=== PATIENT | female | born 1990 | race Caucasian/White ===

== ENCOUNTER 2016-08-28 05:39 | Emergency (ER) | payer MEDICAID ==
--- NOTE | 2016-08-28 08:15 | ER Document Report ---
ED ENT - General Chief Complaint: Sore Throat Stated Complaint: SORE THROAT Notes: The patient is a 26-year-old female who presents with 2 days of sore throat and fevers. She says that she is able swallow, but is painful. She denies neck stiffness, nausea, vomiting, trismus or tongue swelling. TRAVEL OUTSIDE OF THE [place] IN LAST 30 DAYS: No - Related Data Allergies/Adverse Reactions: No Known Allergies Allergy (Verified 08/28/16 05:50) Home Medications: Current Home Medications Norgestimate-Ethinyl Estradiol [Sprintec 28 Day Tablet] 1 tab PO DAILY 08/28/16 [History] Past Medical History - General Information source: Patient - Social History Smoking Status: Never Smoker Chew tobacco use (# tins/day): No Frequency of alcohol use: None Drug Abuse: None Family History: Reviewed & Not Pertinent Renal/ Medical History: Denies: Hx Peritoneal Dialysis - Immunizations Hx Diphtheria, Pertussis, Tetanus Vaccination: Yes - given today Review of Systems - Review of Systems Notes: REVIEW OF SYSTEMS: CONSTITUTIONAL: -fevers, -chills EENT: +sore throat, -eye pain, -difficulty swallowing, -nasal congestion CARDIOVASCULAR:-chest pain, -syncope. RESPIRATORY: -cough, -SOB GASTROINTESTINAL: -abdominal pain, - nausea, -vomiting, -diarrhea GENITOURINARY: -dysuria, -hematuria MUSCULOSKELETAL: -back pain, -neck pain SKIN: -rash or skin lesions. HEMATOLOGIC: -easy bruising or bleeding. LYMPHATIC: -swollen, enlarged glands. NEUROLOGICAL: -altered mental status or loss of consciousness, -headache, - neurologic symptoms PSYCHIATRIC: -anxiety, -depression. ALL OTHER SYSTEMS REVIEWED AND NEGATIVE. Physical Exam - Vital signs Vitals: Temp Pulse Resp BP Pulse Ox 98.5 F 134 H 16 129/81 H 97 08/28/16 05:44 08/28/16 05:44 08/28/16 05:44 08/28/16 05:44 08/28/16 05:44 - Notes Notes: PHYSICAL EXAMINATION: GENERAL: Well-appearing, well-nourished and in no acute distress. HEAD: Atraumatic, normocephalic. EYES: Pupils equal round and reactive to light, extraocular movements intact, sclera anicteric, conjunctiva are normal. ENT: Tonsillar exudates, no DIAMOND BROKER, airway patent, nares patent, moist mucous membranes. NECK: Normal range of motion, supple without lymphadenopathy LUNGS: Breath sounds clear to auscultation bilaterally and equal. No wheezes rales or rhonchi. HEART: Regular rate and rhythm without murmurs ABDOMEN: Soft, nontender, normoactive bowel sounds. No guarding, no rebound. No masses appreciated. EXTREMITIES: Normal range of motion, no pitting or edema. No cyanosis. NEUROLOGICAL: Cranial nerves grossly intact. Normal speech, normal gait. Normal sensory, motor, and reflex exams. PSYCH: Normal mood, normal affect. SKIN: Warm, Dry, normal turgor, no rashes or lesions noted. Course - Re-evaluation Re-evalutation: Patient with rapid strep test and 3 out of 4 Centor criteria. Will treat with anti-inflammatories and amoxicillin with strict return precautions. No evidence of DIAMOND BROKER, RPA or epiglottitis at this time. Patient protecting her airway. Her initial tachycardia resolved. - Vital Signs Vital signs: Temp Pulse Resp BP Pulse Ox 98.5 F 134 H 16 129/81 H 97 08/28/16 05:44 08/28/16 05:44 08/28/16 05:44 08/28/16 05:44 08/28/16 05:44 Discharge - Discharge Clinical Impression: Strep pharyngitis Condition: Good Disposition: HOME, SELF-CARE Additional Instructions: SORE THROAT: Sore throats may be caused by viruses, bacteria, or fungi. Most are due to a virus, and must get better on their own. Bacterial sore throats, particularly those due to "strep," need treatment with antibiotics. If an antibiotic is prescribed, be sure to take the medication for a full 10 days. Failure to take the antibiotic can result in complications such as rheumatic fever. Sometimes, an injection of antibiotics is given instead of pills or liquid. This single "shot" is equal in effectiveness to the oral medication. To relieve symptoms, take acetaminophen for pain. Sip clear liquids frequently, or eat popsicles or ice chips. Anesthetic sprays or lozenges may help. Make sure the air in the room is not too dry. Avoid using decongestants or antihistamines. Call the doctor if there is no improvement in two days, or if you have difficulty breathing, increasing throat pain, high fever, rash, or frequent vomiting. STREP THROAT: Your sore throat is due to the streptococcus germ (strep throat). Strep throat usually makes you feel quite ill with fever and aches, headache, swollen sore throat, and tender bumps under the angles of the jaw. Strep throat requires antibiotic treatment. Although the sore throat may go away by itself, complications such as rheumatic fever, kidney disease, or throat abscess can occur. We usually prescribe antibiotics by mouth. Be sure to take the medicine until it's gone. If you stop early, the strep may come back. If you are vomiting, are severely ill, or can't remember to take pills, we can give you an antibiotic shot. Take acetaminophen or ibuprofen for pain and fever. Sip frequent clear liquids, or use popsicles or ice chips. Anesthetic sprays or lozenges may help. Make sure the air in the room is not too dry. Avoid using decongestants or antihistamines. Call the doctor if there is no improvement in three days, or if you have difficulty breathing, increasing throat pain, high fever, rash, or frequent vomiting. FOLLOW-UP CARE: If you have been referred to a physician for follow-up care, call the physician s office for an appointment as you were instructed or within the next two days. If you experience worsening or a significant change in your symptoms, notify the physician immediately or return to the Emergency Department at any time for re-evaluation. Prescriptions: Amoxicillin Trihydrate [Amoxil 500 mg Capsule] 500 mg PO BID #20 capsule Referrals: TRACE RUIZ MD [Primary Care Provider] - Follow up as needed
[2016-08-28 12:35] VITALS: BP 134/82
== END 2016-08-28 08:30 | disposition home or self-care (01) ==
LOC: ER 05:39
DX: J02.0 Streptococcal pharyngitis (principal); J02.9 Acute pharyngitis, unspecified; R50.9 Fever, unspecified; Z79.899 Other long term (current) drug therapy
CPT/HCPCS: 87880; 99283

== ENCOUNTER 2019-08-03 11:39 | Outpatient (CLI) | payer MEDICAID ==
--- NOTE | 2019-08-03 12:39 | Non Stress Test Report ---
Non Stress Test Datetime Report Generated by CPN: 08/03/2019 12:38 DEMOGRAPHIC Test Number: 1 EGA NST: 34.0 INDICATION Indication for Study (NST) Other: repeat NST questionable decel in office VITAL SIGNS Temperature - NST: 98.1 MONITORING Monitor Explained: Monitor Explained; Test Explained; Patient Verbalized Understanding Time on Monitor: 08/03/2019 11:55 Time off Monitor: 08/03/2019 12:30 NST Duration: 35 NST INTERVENTIONS NST Interventions: PO Hydration Physician Notified NST: dr. rene BABY A: [id number] BABY A Movement : Present Contraction Frequency : 0 FHR Baseline : 130 Accelerations : 15X15 Decelerations : None Variability : Moderate 6-25bpm NST Review: Meets Criteria for Reactive NST NST Review and Verified By : C Liya RN NST Results: Reactive NST COMMENTS NST Comments: provider on unit reviewing FHT strip NST REPORT Report Trigger: Send Report
== END 2019-08-03 12:35 | disposition home or self-care (01) ==
LOC: LC 11:39
PROVIDERS: ATTEND Obstetrics & Gynecology Gynecology
PROC: 4A1HXCZ Monitoring of Products of Conception, Cardiac Rate, External Approach (ICD-10-PCS; principal; 2019-08-03)
DX: Z36.89 Encounter for other specified antenatal screening (principal); Z3A.34 34 weeks gestation of pregnancy

== ENCOUNTER 2019-09-19 02:27 | Inpatient (IN) | payer MEDICAID ==
[2019-09-19] MEDS ORDERED: CEFAZOLIN 2 GM/D5W RTU 2 GM/50 ML RTUPB IV PRN (06:34)
[2019-09-19 06:52] LABS: APPEARANCE,URINE CLEAR; BILIRUBIN,URINE NEGATIVE (NEGATIVE); COLOR,URINE AMBER; GLUCOSE, URINE NEGATIVE (NEGATIVE); KETONES,URINE NEGATIVE (NEGATIVE); LEUKOCYTE ESTERASE,URINE NEGATIVE (NEGATIVE); NITRITE,URINE POSITIVE (NEGATIVE); PROTEIN,URINE 30 mg/dL (NEGATIVE); URINE SPECIFIC GRAVITY 1.023; UROBILINOGEN,URINE NEGATIVE mg/dL (<2.0)
[2019-09-19] MEDS ORDERED: MIDAZOLAM 2 MG/2 ML INJ ONE (06:52)
[2019-09-19] MEDS ORDERED: OXYTOCIN 10 UNIT/ML VIAL ONE (06:52)
[2019-09-19] MEDS ORDERED: EPHEDRINE SULFATE INJ 50 MG/1 ML AMPULE ONE (06:52)
[2019-09-19] MEDS ORDERED: FENTANYL CITRATE INJ/PF 100 MCG/2 ML AMPUL ONE (06:52)
[2019-09-19 06:53] LABS: ABSOLUTE LYMPHOCYTES (AUTO) 1.7 10^3/uL (0.5-4.7); ABSOLUTE MONOCYTES (AUTO) 0.5 10^3/uL (0.1-1.4); ABSOLUTE NEUT (AUTO) 8.1 10^3/uL (1.7-8.2); BASOPHILS % (AUTO) 0.3 % (0-2); EOSINOPHILS % (AUTO) 0.3 % (0-6); HEMATOCRIT 30.4 % (36.0-47.0); HEMOGLOBIN 9.8 g/dL (12.0-15.5); LYMPHOCYTES % (AUTO) 16.6 % (13-45); MEAN CORPUSCULAR HEMOGLOBIN 22.8 pg (27.0-33.4); MEAN CORPUSCULAR HGB CONC 32.2 g/dL (32.0-36.0); MEAN CORPUSCULAR VOLUME 71 fl (80-97); MONOCYTES % (AUTO) 4.8 % (3-13); PLATELET COUNT 218 10^3/uL (150-450); RED BLOOD COUNT 4.29 10^6/uL (3.72-5.28); RED CELL DISTRIBUTION WIDTH 16.6 % (11.5-14.0); TOTAL CELLS COUNTED % (AUTO) 100 %; WHITE BLOOD COUNT 10.4 10^3/uL (4.0-10.5)
[2019-09-19] MEDS ORDERED: OXYTOCIN/NORMAL SALINE 20 UNIT/1,000 ML RTUINJ ONE (06:53)
[2019-09-19] MEDS ORDERED: ONDANSETRON HCL INJ/PF 4 MG/2 ML SDV ONE (06:53)
[2019-09-19 07:05] LABS: URINE AMPHETAMINES SCREEN NEGATIVE; URINE BARBITURATES SCREEN NEGATIVE; URINE BENZODIAZEPINES SCREEN NEGATIVE; URINE COCAINE SCREEN NEGATIVE; URINE MARIJUANA (THC) SCREEN NEGATIVE; URINE METHADONE SCREEN NEGATIVE; URINE PHENCYCLIDINE SCREEN NEGATIVE
[2019-09-19] MEDS ORDERED: RINGERS SOLUTION,LACTATED 1,000 ML IV PRN (08:06)
[2019-09-19] MEDS ORDERED: RINGERS SOLUTION,LACTATED 1,000 ML IV ONE (08:15)
[2019-09-19] MEDS ORDERED: CEFAZOLIN SODIUM 2 GM in DEXTROSE 5%-WATER 100 ML IV PRN (08:47)
[2019-09-19] MEDS ORDERED: DIPHENHYDRAMINE HCL 50 MG/ML VIAL IV PRN (09:30)
[2019-09-19] MEDS ORDERED: MORPHINE SULFATE 10 MG/ML INJ IV PRN (09:30)
[2019-09-19] MEDS ORDERED: OXYCODONE-ACETAMINOPHEN 5-325 MG TABLET PO PRN (09:30)
[2019-09-19] MEDS ORDERED: MEPERIDINE HCL/PF INJ 25 MG/1 ML DISP.SYRIN IV PRN (09:30)
[2019-09-19] MEDS ORDERED: PROMETHAZINE HCL INJ 25 MG/1 ML VIAL IV PRN ×2 (09:30→09:55)
[2019-09-19] MEDS ORDERED: FENTANYL CITRATE INJ/PF 100 MCG/2 ML AMPUL IV PRN ×3 (09:30)
[2019-09-19] MEDS ORDERED: MEASLES,MUMPS&RUBELLA VACC/PF 0.5 ML VIAL SUBCUT PRN (09:55)
[2019-09-19] MEDS ORDERED: ACETAMINOPHEN 1,000 MG/100 ML RTUPB IV PRN (09:55)
[2019-09-19] MEDS ORDERED: SIMETHICONE 80 MG TAB.CHEW PO PRN (09:55)
[2019-09-19] MEDS ORDERED: ACETAMINOPHEN 325 MG TABLET PO PRN (09:55)
[2019-09-19] MEDS ORDERED: DIPH/PERTUSS(ACELL)/TETANUS VAC/PF 0.5 ML SYR (>=10YO) IM PRN (09:55)
[2019-09-19] MEDS ORDERED: OXYTOCIN/NORMAL SALINE 20 UNIT/1,000 ML RTUINJ IV PRN (09:55)
--- NOTE | 2019-09-19 10:00 | PDOC DELIVERY SUMMARY ---
Delivery Summary - Maternal Hx : IV Hx # Term Pregnancies: 2 Hx Total # of Abortions (Sponateous & Elective): 1 EMMA: 09/14/19 Risk Factors: Gestational Diabetes, Other - macrosomia desire for sterilization Ruptured Membranes: AROM Fluids: Clear - Delivery Labor: Not In Labor Presentation: Vertex Heart Rate Monitoring: Done Pre-Operatively, Externally Support Person Present: Yes Location: OR : Scheduled Placenta: Within Normal Limits Number of Vessels (Cord): 3 Nuchal Cord: No - Medications Type of Anesthesia:: Spinal
--- NOTE | 2019-09-19 10:05 | Operative Report ---
Operative Report DATE OF SURGERY: 09/19/19 PREOPERATIVE DIAGNOSIS: IUP at term gestational diabetes macrosomia for sterili zation POSTOPERATIVE DIAGNOSIS: Same OPERATION: Chnya low transverse section delivery of a viable male and bilateral tubal occlusion SURGEON: ROBERT MCKINNEY ANESTHESIA: Spinal TISSUE REMOVED OR ALTERED: Placenta COMPLICATIONS: None ESTIMATED BLOOD LOSS: Approximately 1000 cc PROCEDURE: The patient was taken to the operating room where spinal anesthesia was obtained and found to be adequate. She was then prepped and draped in the normal sterile fashion and placed in the dorsal supine position with a leftward tilt. A Pfannenstiel skin incision was then made and carried through to the underlying layers of the fascia with the scalpel. The fascia was incised in the midline and the incision extended laterally with the Pittman scissors. The superior aspect of the fascial incision was then grasped with [place] clamps elevated and the underlying rectus muscles dissected off bluntly. Attention was then turned to the inferior aspect of the fascial incision which in a similar f ashion was grasped, tented up with Adolfo clamps, and the rectus muscles dissected off bluntly. The rectus muscles were then in the midline and the peritoneum at the amount identified and entered bluntly. The peritoneal incision was then extended superiorly and inferiorly with good visualization of the bladder. [The bladder blade was inserted and the vesicouterine peritoneum identified grasped with [place] pickups and entered sharply with the Metzenbaum scissors. His incision was then extended laterally with the Metzenbaum scissors and a bladder flap created digitally. The bladder blade was then reinserted and the lower uterine segment incised in a transverse fashion with the scalpel. The uterine incision was then extended bluntly. The bladder blade was removed and the infant's head was delivered from cephalic presentation atraumatically using Kiwi. The nose and mouth were suctioned and the cord doubly clamped and cut. And the infant was handed off to waiting pediatricians. The placenta was then delivered manully and the uterus exteriorized and cleared of all clots and debris. The uterine incision was then repaired with 1-0 Vicryl in a running locked fashion. A second layer of the same suture was used to obtain hemostasis via imbrication of the initial layer. The uterus was returned to the patient's abdomen. The gutters were cleared of all clots and d ebris. Fallopian tube was banded in the proximal portion using Filshie clips repeated on the left. There was a small amount of bleeding at the tip of the Filshie clip on the right tube this was controlled with a tie of 0 chromic. All operative sites were noted to be hemostatic. The fascia was reapproximated with 0 Vicryl in a running fashion from each lateral edge to the midline. The patient tolerated the procedure well. Sponge lap needle and instrument counts are correct -2. 2 g of Ancef were given prior to skin incision. The patient was taken to the recovery area awake and in stable condition.
[2019-09-19] MEDS ORDERED: KETOROLAC TROMETHAMINE INJ/PF 30 MG/1 ML SDV ONE (11:17)
[2019-09-19] MEDS ORDERED: ACETAMINOPHEN 1,000 MG/100 ML RTUPB IV ONE (11:17)
[2019-09-19] MEDS ORDERED: MORPHINE SULFATE 10 MG/ML INJ ONE (11:30)
[2019-09-19] MEDS: MORPHINE SULFATE 10 MG/ML INJ IM PRN ×2 (11:32→16:26)
[2019-09-19] MEDS: PRENATAL VITAMIN W DHA CAPSULE PO SCH (11:54)
[2019-09-19] MEDS: DOCUSATE SODIUM 100 MG CAPSULE PO SCH ×2 (11:54→17:39)
[2019-09-19] MEDS: KETOROLAC TROMETHAMINE INJ/PF 30 MG/1 ML SDV IV SCH ×2 (14:00→21:31)
[2019-09-19] MEDS: OXYCODONE-ACETAMINOPHEN 5-325 MG TABLET PO PRN ×2 (14:00→18:29)
[2019-09-20] MEDS: OXYCODONE-ACETAMINOPHEN 5-325 MG TABLET PO PRN ×4 (01:25→19:58)
[2019-09-20 06:25] LABS: HEMATOCRIT 24.4 % (36.0-47.0); MEAN CORPUSCULAR HEMOGLOBIN 23.5 pg (27.0-33.4); MEAN CORPUSCULAR HGB CONC 32.6 g/dL (32.0-36.0); MEAN CORPUSCULAR VOLUME 72 fl (80-97); PLATELET COUNT 172 10^3/uL (150-450); RED CELL DISTRIBUTION WIDTH 17.1 % (11.5-14.0); WHITE BLOOD COUNT 7.8 10^3/uL (4.0-10.5)
[2019-09-20] MEDS: KETOROLAC TROMETHAMINE INJ/PF 30 MG/1 ML SDV IV SCH (06:34)
[2019-09-20] MEDS: DOCUSATE SODIUM 100 MG CAPSULE PO SCH ×2 (09:41→17:36)
[2019-09-20] MEDS: PRENATAL VITAMIN W DHA CAPSULE PO SCH (09:41)
[2019-09-20] MEDS ORDERED: FERRIC CARBOXYMALTOSE INJ 750 MG/15 ML VIAL IV ONE (13:02)
--- NOTE | 2019-09-20 13:09 | PDOC PROGRESS REPORT ---
Subjective-OB Progress Note for:: 09/20/19 Subjective: 29yo G4 now P3 s/p primary ppd 1. Ambulating and voiding without difficulty. Reports pain well tolerated with medication, denies any concerns today Physical Exam (OB) Vital Signs: Temp Pulse Resp BP Pulse Ox 98.3 F 94 18 129/65 H 99 09/20/19 11:25 09/20/19 11:25 09/20/19 11:25 09/20/19 11:25 09/20/19 11:25 Intake & Output 09/19/19 09/20/19 09/21/19 06:59 06:59 06:59 Intake Total 300 Output Total 1000 Balance -700 Weight 168.918 kg - General General Appearance: Appears well In distress: None - Dressing Removed: No - still in place Incision: Dressing - Lochia Lochia Amount: Scant < 10 ml Lochia Color: Rubra/Red - Abdomen Description: Soft Hernia Present: No Fundal Description: Firm, Midline Fundal Height: u/u - u/2 - Respiratory Respiratory Status: No respiratory distress - Extremities Upper extremity: Normal inspection Lower extremities: Edema - Neurological Cognition: Normal Orientation: AAOx4 - Psychological Associated symptoms: Normal affect, Normal mood Objective-Diagnostic Laboratory: 09/20/19 06:12 09/20/19 06:12 WBC 7.8 RBC 3.40 L Hgb 8.0 L Hct 24.4 L MCV 72 L MCH 23.5 L MCHC 32.6 RDW 17.1 H Plt Count 172 Assessment and Plan(PN) - Assessment and Plan (1) S/P primary low transverse Is this a current diagnosis for this admission?: Yes Plan: routine pp care (2) Status post tubal ligation Is this a current diagnosis for this admission?: Yes Plan: routine pp care (3) Anemia complicating , third trimester Is this a current diagnosis for this admission?: Yes Plan: increase dietary iron and FeSO4 BID (4) Acute blood loss anemia Is this a current diagnosis for this admission?: Yes Plan: IV iron ordered, will recheck CBC in the am (5) Qualifiers: Weeks of gestation: 39 weeks Qualified Code(s): Z3A.39 - 39 weeks gestation of Is this a current diagnosis for this admission?: Yes Plan: delivered (6) Gestational diabetes mellitus (GDM) Qualifiers: Gestational diabetes mellitus control: unspecified Trimester: third trimester Qualified Code(s): O24.419 - Gestational diabetes mellitus in , unspecified control Is this a current diagnosis for this admission?: Yes Plan: delivered, recheck fasting at pp visit - Time Spent with Patient Time with patient: Less than 15 minutes Medications reviewed and adjusted accordingly: Yes - Disposition Anticipated Discharge: Home Within: within 24 hours
[2019-09-20] MEDS: IBUPROFEN 800 MG TABLET PO SCH ×3 (13:54→23:56)
[2019-09-20] MEDS ORDERED: FERRIC CARBOXYMALTOSE 750 MG in NORMAL SALINE 250 ML IV ONE (14:00)
[2019-09-21] MEDS: OXYCODONE-ACETAMINOPHEN 5-325 MG TABLET PO PRN ×2 (03:43→09:26)
[2019-09-21] MEDS: IBUPROFEN 800 MG TABLET PO SCH ×2 (05:41→11:22)
[2019-09-21 07:27] LABS: HEMATOCRIT 24.7 % (36.0-47.0); MEAN CORPUSCULAR HEMOGLOBIN 23.1 pg (27.0-33.4); MEAN CORPUSCULAR HGB CONC 31.9 g/dL (32.0-36.0); MEAN CORPUSCULAR VOLUME 72 fl (80-97); PLATELET COUNT 197 10^3/uL (150-450); RED BLOOD COUNT 3.42 10^6/uL (3.72-5.28); RED CELL DISTRIBUTION WIDTH 16.8 % (11.5-14.0); WHITE BLOOD COUNT 6.8 10^3/uL (4.0-10.5)
[2019-09-21 07:28] LABS: HEMOGLOBIN 7.9 g/dL (12.0-15.5)
[2019-09-21] MEDS: PRENATAL VITAMIN W DHA CAPSULE PO SCH (09:26)
[2019-09-21] MEDS: DOCUSATE SODIUM 100 MG CAPSULE PO SCH (09:26)
--- NOTE | 2019-09-21 10:49 | PDOC DISCHARGE SUMMARY ---
Impression - Admit/DC Date/PCP Admission Date/Primary Care Provider: 09/19/19 05:52 GEORGE ELI NP Discharge Date: 09/21/19 - Discharge Diagnosis (1) Acute blood loss anemia Is this a current diagnosis for this admission?: Yes (2) Anemia complicating , third trimester Is this a current diagnosis for this admission?: Yes (3) Gestational diabetes mellitus (GDM) Is this a current diagnosis for this admission?: Yes (4) S/P primary low transverse Is this a current diagnosis for this admission?: Yes (5) Status post tubal ligation Is this a current diagnosis for this admission?: Yes - Additional Information Resuscitation Status: Full Code Discharge Diet: Regular Discharge Activity: Balance Activity w/Rest, No Lifting Over 10 Pounds, No Lifting/Push/Pulling, Pelvic Rest, No tub bath Referrals: GEORGE ELI, ZULEIMA [Primary Care Provider] - Prescriptions: Oxycodone HCl/Acetaminophen [Percocet 5-325 mg Tablet] 1 tab PO Q4HP PRN #30 tablet PRN Reason: Ibuprofen [Motrin 800 mg Tablet] 800 mg PO Q8HP PRN #60 tablet PRN Reason: Home Medications: Vitamin [-U Multiple Vitamin Capsule] 1 tab PO DAILY 09/19/19 Ibuprofen [Motrin 800 mg Tablet] 800 mg PO Q8HP PRN #60 tablet 09/21/19 Oxycodone HCl/Acetaminophen [Percocet 5-325 mg Tablet] 1 tab PO Q4HP PRN #30 tablet 09/21/19 Results Laboratory Results: WBC 6.8 10^3/uL (4.0-10.5) 09/21/19 07:02 RBC 3.42 10^6/uL (3.72-5.28) L 09/21/19 07:02 Hgb 7.9 g/dL (12.0-15.5) L 09/21/19 07:02 Hct 24.7 % (36.0-47.0) L 09/21/19 07:02 MCV 72 fl (80-97) L 09/21/19 07:02 MCH 23.1 pg (27.0-33.4) L 09/21/19 07:02 MCHC 31.9 g/dL (32.0-36.0) L 09/21/19 07:02 RDW 16.8 % (11.5-14.0) H 09/21/19 07:02 Plt Count 197 10^3/uL (150-450) 09/21/19 07:02 Lymph % (Auto) 16.6 % (13-45) 09/19/19 06:42 Larue % (Auto) 4.8 % (3-13) 09/19/19 06:42 Eos % (Auto) 0.3 % (0-6) 09/19/19 06:42 Baso % (Auto) 0.3 % (0-2) 09/19/19 06:42 Absolute Neuts (auto) 8.1 10^3/uL (1.7-8.2) 09/19/19 06:42 Absolute Lymphs (auto) 1.7 10^3/uL (0.5-4.7) 09/19/19 06:42 Absolute Monos (auto) 0.5 10^3/uL (0.1-1.4) 09/19/19 06:42 Absolute Eos (auto) 0.0 10^3/uL (0.0-0.6) 09/19/19 06:42 Absolute Basos (auto) 0.0 10^3/uL (0.0-0.2) 09/19/19 06:42 Seg Neutrophils % 78.0 % (42-78) 09/19/19 06:42 POC Glucose 95 mg/dL (70-110) 09/19/19 06:12 Urine Color AUGUSTINA 09/19/19 06:20 Urine Appearance CLEAR 09/19/19 06:20 Urine pH 6.0 (5.0-9.0) 09/19/19 06:20 Ur Specific [place] 1.023 09/19/19 06:20 Urine Protein 30 mg/dL (NEGATIVE) H 09/19/19 06:20 Urine Glucose (UA) NEGATIVE mg/dL (NEGATIVE) 09/19/19 06:20 Urine Ketones NEGATIVE mg/dL (NEGATIVE) 09/19/19 06:20 Urine Blood NEGATIVE (NEGATIVE) 09/19/19 06:20 Urine Nitrite POSITIVE (NEGATIVE) H 09/19/19 06:20 Urine Bilirubin NEGATIVE (NEGATIVE) 09/19/19 06:20 Urine Urobilinogen NEGATIVE mg/dL (<2.0) 09/19/19 06:20 Ur Leukocyte Esterase NEGATIVE (NEGATIVE) 09/19/19 06:20 Urine WBC (Auto) 9 /HPF 09/19/19 06:20 Urine RBC (Auto) 1 /HPF 09/19/19 06:20 Urine Bacteria (Auto) 2+ /HPF 09/19/19 06:20 Squamous Epi Cells Auto 11 /HPF 09/19/19 06:20 Urine Mucus (Auto) MOD /LPF 09/19/19 06:20 Urine Ascorbic Acid NEGATIVE (NEGATIVE) 09/19/19 06:20 Urine Opiates Screen NEGATIVE 09/19/19 06:20 Urine Methadone Screen NEGATIVE 09/19/19 06:20 Ur Barbiturates Screen NEGATIVE 09/19/19 06:20 Ur Phencyclidine Scrn NEGATIVE 09/19/19 06:20 Ur Amphetamines Screen NEGATIVE 09/19/19 06:20 U Benzodiazepines Scrn NEGATIVE 09/19/19 06:20 Urine Cocaine Screen NEGATIVE 09/19/19 06:20 U Marijuana (THC) Screen NEGATIVE 09/19/19 06:20 Blood Type A POSITIVE 09/19/19 06:42 Antibody Screen NEGATIVE 09/19/19 06:42
[2019-09-21 11:00] VITALS: BP 126/76
== END 2019-09-21 13:00 | disposition home or self-care (01) | DRG 784 ==
LOC: 2S 05:52
PROVIDERS: ADMIT Obstetrics & Gynecology; ATTEND Obstetrics & Gynecology Gynecology
PROC: 0UL70CZ Occlusion of Bilateral Fallopian Tubes with Extraluminal Device, Open Approach (ICD-10-PCS; 2019-09-19)
PROC: 10D00Z1 Extraction of Products of Conception, Low, Open Approach (ICD-10-PCS; principal; 2019-09-19 09:00)
PROC: 3E0234Z Introduction of Serum, Toxoid and Vaccine into Muscle, Percutaneous Approach (ICD-10-PCS; 2019-09-21)
DX: O24.420 Gestational diabetes mellitus in childbirth, diet controlled (principal); D62 Acute posthemorrhagic anemia; O36.63X0 Maternal care for excessive fetal growth, third trimester, not applicable or unspecified; O99.02 Anemia complicating childbirth; O99.214 Obesity complicating childbirth; E66.9 Obesity, unspecified; Z30.2 Encounter for sterilization; Z3A.39 39 weeks gestation of pregnancy; Z37.0 Single live birth; Z23 Encounter for immunization
CPT/HCPCS: 1961; 36415; 59025; 80307; 81001; 82962; 85025; 85027; 86850; 86900; 86901; 90715; 94799; J0131; J1439; J1885; J2250; J2270; J2405; J2590; J3010; J3490; J7050; J7120